=== PATIENT | female | born 1940 | race Caucasian/White ===

== ENCOUNTER 2022-07-27 11:22 | Emergency (ER) | payer MEDICARE, SELFPAY ==
[2022-07-27 11:23] VITALS: BP 161/74; PULSE 70; RESP 18; TEMP 36.2; O2SAT 97; BMI 37.6
--- NOTE | 2022-07-27 12:05 | EX.ED.DYSGE1 ---
HPI History of Present Illness Chief Complaint: Dizziness Narrative Narrative: 81-year-old female presenting with her family for an episode of vertigo. She has a history of benign positional vertigo. She did not take any meclizine today. When she woke up and started to walk she felt dizzy. She is describing vertiginous dizziness. She has a dull headache which is improved. She states that this is a chronic issue when she has to move very slowly at times. She states when she beto down or stands up she has to go slowly. Patient states he also has tinnitus which is a chronic issue. Patient denies any facial droop, slurred speech, paresthesias. He denies any trauma. Patient also states he saw small amount of blood in her stool couple weeks ago which has not returned. No black stools. No nausea or vomiting. No abdominal pain. PFSH PFSH Home Medications meclizine 25 mg tablet 25 mg PO TID #30 tabs 07/27/22 [Rx Last Taken Unknown] Allergy/AdvReac Type Severity Reaction Status Date / Time No Known Allergies Allergy Verified 07/27/22 11:26 Social History Smoking Status: Never smoker ROS ROS ED Constitutional Constitutional ED: Denies chills or fever(s) Eyes Eyes: Denies change in vision ENT ENT ED: Reports other Details: Dizziness ; Denies rhinorrhea Cardiovascular Cardiovascular: Denies chest pain or palpitations Respiratory/Chest Respiratory/Chest: Denies cough or dyspnea Gastrointestinal Gastrointestinal: Denies abdominal pain or constipation Genitourinary Genitourinary ED: Denies dysuria Musculoskeletal Musculoskeletal: Denies arthralgias or back pain Integumentary Denies abscess or Abrasions Neurologic Neurologic: Reports headache(s); Denies paresthesias or weakness Psychiatric Psychiatric: Denies anxiety or depression EXAM Physical Exam Const Vital Signs: 07/27/22 11:23 07/27/22 12:15 Temperature 97.2 F L Temperature Source Temporal Pulse Rate 70 Respiratory Rate 18 Respiratory Effort Normal Non-Labored Blood Pressure 161/74 H Blood Pressure Mean 103 Pulse Ox 97 Oxygen Delivery Method Room Air Positive well nourished General Appearance ED: NAD; Negative for pallor HEENT Reports moist mucous membranes HEENT Narrative: Positive Byron-Hallpike Eyes PERRL and EOMs intact bilaterally General Eye ED: Negative for pale conjunctiva or scleral icterus Resp normal respiratory effort GI normal to inspection, nondistended, normoactive bowel sounds GI Narrative: No perirectal hemorrhoids. Extremity normal to inspection Neuro oriented x3 and CN's II-XII intact bilaterally Sensorium / Orientation: alert Motor Exam: strength 5/5 throughout Psych mental status grossly normal Skin no rashes or lesions noted and no wounds General Skin Exam: Negative for jaundice or pallor MDM MDM MDM Narrative Medical decision making narrative: Patient has reproducible vertiginous dizziness. Her Byron-Hallpike is positive. She has a history of this in the past. There is nothing new about it. She did not take any meclizine today she was provided some here. The patient states she did have blood in her stool a couple of weeks ago but has not noted any recently. She has had multiple colonoscopies and was told that she does not have any issues. She has a follow-up colonoscopy coming up prior to her knee surgery. Her vital signs are stable and she is actually little hypertensive. Her skin is pink and warm. Her conjunctiva are pink. I do not believe she is anemic. I counseled her to make sure she makes this follow-up. I did examine her rectum at her request and she does not have any evidence of hemorrhoids. I do not believe she needs any blood work or imaging. She is given a prescription for meclizine. Impression: 1. Tinnitus 2. Benign positional vertigo 3. History of blood in stool Lab Data Attestation: I reviewed the patient's lab results. Discharge Plan Triage Chief Complaint: Dizziness ED Provider: Matthew Del Valle Dx/Rx/DC Orders Instructions: Tinnitus (Ringing in the Ears), ED BPV Vertigo Prescriptions: New meclizine 25 mg tablet 25 mg PO TID Qty: 30 0RF Primary Care Provider: Hiram Ochoa NP Referrals: [facility] Doctor,Out of [Non-Staff] - Disposition Disposition: Home, Self Care Discharge Date/Time: 07/27/22 12:46
[2022-07-27] MEDS: Meclizine HCl 25 MG Tablet PO (12:09)
== END 2022-07-27 12:46 | disposition home or self-care (01) ==
LOC: ED 12:25
PROVIDERS: Emergency Provider Student in an Organized Health Care Education/Training Program; PCP Nurse Practitioner Family; Visit Provider Student in an Organized Health Care Education/Training Program
DX: H93.19 Tinnitus, unspecified ear (principal); H81.10 Benign paroxysmal vertigo, unspecified ear
CPT/HCPCS: 99283

== ENCOUNTER → 2022-09-30 | Outpatient (CLI) | payer MEDICARE, SELFPAY ==
--- NOTE | 2022-09-30 11:21 | STRESSREP_ITS ---
Stress Test Report Pharmacologic myocardial perfusion stress test. 81-year-old lady with a history of abnormal EKG for preop knee surgery. Resting EKG demonstrates sinus bradycardia with a rate of 58 bpm normal intervals are noted resting blood pressure is 112/82 mmHg. 0.4 mg of regadenoson was infused per usual protocol followed by wrap intravenous saline f lush injection continuous EKG monitoring was performed. The maximum heart rate attained was noted to be 84 bpm which was 58% of max impacted heart rate the maximum workload was 1 metabolic equivalent. At rest there were no ST or T wave changes noted to suggest abnormal flow reserve and at peak infusion nonspecific ST changes were noted we did not meet the criteria for ischemia. The final blood pressure is 140/70 mmHg. Myocardial perfusion protocol. 9.1 mCi of technetium 99m sestamibi was injected at rest. 0.4 mg of regadenoson was infused per usual protocol. At peak infusion 30.3 mCi of technetium 99m sestamibi was injected stress images were obtained stress and rest images were reconstructed in comparing the short axis vertical long and horizontal long axis. Gated images were also obtained. Perfusion SPECT analysis: Review of the stress images demonstrate normal uptake of tracer noted in all areas of the myocardium. The resting images similar demonstrate normal uptake of tracer noted in all areas of the myocardium. No areas of reversibility are noted to suggest ischemia and no previous infarct is noted. Gated SPECT analysis: The gated ejection fraction is noted to be 73%. Conclusion: Normal pharmacologic myocardial perfusion stress test. Preserved ejection fraction.
== END | disposition home or self-care (01) ==
PROVIDERS: PCP Nurse Practitioner Family
DX: R94.31 Abnormal electrocardiogram [ECG] [EKG] (principal)
CPT/HCPCS: 78452; 93017; A9500; A4216; J2785